=== PATIENT | female | born 1950 | race Caucasian/White ===

== ENCOUNTER → 2017-05-04 | Outpatient (CLI) | payer MEDICARE, BC ==
[2015-03-14 21:00] VITALS: BP 128/76
[~2017-05-04] MED LIST: ALLO300T PO; ASPI-482 PO; BENA40TA2 PO; CHOL20009 PO; EZET10TA18 PO; FLUO20CA8 PO; GLUC100018 PO; HYDR-2762 PO; HYDR12.58 PO; MULT-18 PO; NIAC500T PO; OMEG1CAP38 PO; RALO60TA PO; SIMV40TA PO; ZOLP10TA PO
--- NOTE | 2017-05-04 12:23 | KCIC ---
DATE: 05/04/2017 EXAM: MAMMO REBEKAH SCREENING BILATERAL HISTORY: Routine screening COMPARISON: 05/03/2016 This study was interpreted with the benefit of Computerized Aided Detection (CAD). The breast parenchyma shows scattered fibroglandular densities. Breast parenchyma level B. FINDINGS: 2-D and 3-D tomosynthesis imaging was performed in CC and MLO projections. There are multiple small smooth benign-appearing nodules in both breasts, better demonstrated on today's tomosynthesis images due to technical factors. No new or enlarging breast densities are seen. A few scattered benign type calcifications are unchanged. No suspicious microcalcifications have developed. IMPRESSION: Stable mammograms without evidence of malignancy. BI-RADS CATEGORY: 2 BENIGN FINDING(S) RECOMMENDED FOLLOW-UP: 12M 12 MONTH FOLLOW-UP PQRS compliance statement: Patient information was entered into a reminder system with a target due date for the next mammogram. Mammography is a sensitive method for finding small breast cancers, but it does not detect them all and is not a substitute for careful clinical examination. A negative mammogram does not negate a clinically suspicious finding and should not result in delay in biopsying a clinically suspicious abnormality. "Our facility is accredited by the [employer] Mammography [employer]."
== END | disposition home or self-care (01) ==
LOC: KCIC MAMMO 10:14
PROVIDERS: ATTEND Family Medicine
DX: Z12.31 Encounter for screening mammogram for malignant neoplasm of breast (principal)
CPT/HCPCS: 77063; G0202; 77067

== ENCOUNTER → 2018-05-06 | Outpatient (CLI) | payer MEDICARE, BC ==
[2015-03-14 21:00] VITALS: BP 128/76
[~2018-05-06] MED LIST changes: -BENA40TA2 PO; +BENA40TA3 PO
--- NOTE | 2018-05-07 10:11 | KCIC ---
EXAM: Bilateral digital screening mammogram with tomosynthesis. HISTORY: 67-year-old female presents for screening mammography. TECHNIQUE: Full-field digital craniocaudal and mediolateral oblique 2D and 3D tomosynthesis images of both breasts are obtained for evaluation. Computer aided detection with SwapseeD software version 9.3 was applied. COMPARISON: 05/04/2017 BREAST PARENCHYMAL DENSITY: Level B - Scattered fibroglandular densities. FINDINGS: There are small nodular densities within the anterior 6:00 position of the right breast on 5:30 position of the right breast at mid depth. These are slightly more conspicuous compared to the prior study. There are additional areas of nodularity which are stable in appearance. There is no suspicious calcifications or architectural distortion within either breast. IMPRESSION: BI-RADS Category 0: Additional imaging needed. RECOMMENDATION: Further evaluation with a right breast sonogram targeted to the anterior 6:00 and mid 5:30 positions to assess areas of nodularity is recommended. If your mammogram demonstrates that you have dense breast tissue, which could hide abnormalities, and if you have other risk factors for breast cancer that have been identified, you might benefit from supplemental screening tests that may be suggested by your ordering physician. Dense breast tissue, in and of itself, is a relatively common condition. This information is not provided to cause undue concern, but rather to raise your awareness and to promote discussion with your physician regarding the presence of other risk factors, in addition to dense breast tissue. A report of your mammography results will be sent to you and your physician. You should contact your physician if you have any questions or concerns regarding this report. Mammography is a sensitive method for finding small breast cancers, but it does not detect them all and is not a substitute for careful clinical examination. A negative mammogram does not negate a clinically suspicious finding and should not result in delay in biopsying a clinically suspicious abnormality. PQRS compliance statement - Patient information was entered into a reminder system with a target due date for the next mammogram. "Our facility is accredited by the [employer] Mammography [employer]." Electronically signed by: Rhonda Osborne MD (05/07/2018 10:08 AM) [facility]
== END | disposition home or self-care (01) ==
LOC: KCIC MAMMO 16:33
PROVIDERS: ATTEND Family Medicine
DX: Z12.31 Encounter for screening mammogram for malignant neoplasm of breast (principal)
CPT/HCPCS: 77063; 77067

== ENCOUNTER → 2018-05-24 | Outpatient (CLI) | payer MEDICARE, BC ==
[2015-03-14 21:00] VITALS: BP 128/76
[~2018-05-24] MED LIST changes: -HYDR-2762 PO; +HYDR-2765 PO
--- NOTE | 2018-05-24 13:59 | KCIC ---
Right breast ultrasound: Reason for examination: Small nodules on screening mammogram. Comparison is made to mammographic exam dated 05/06/2018. Ultrasound examination was performed inferiorly in the right breast and at the retroareolar and axillary regions. In the 4:00 position 3 cm from the nipple, there is a small 2.7 mm fibrocystic lesion. In the 5:30 position, there is a 3.1 mm focus of fibrocystic-type change. In the retroareolar 6:00 position, there is some ductal ectasia and there is a small 4.5 mm fibrocystic lesion. In the 6:00 position 1 cm from the nipple, there is a 6.5 mm cyst. In the 9:00 position 2 cm from the nipple, there is a 8.3 mm fibrocystic lesion. No suspicious lesions are seen. No abnormal appearing lymph nodes are seen in the right axilla. IMPRESSION: Benign-appearing cystic and fibrocystic lesions which are subcentimeter in size. No solid suspicious-appearing lesions are seen. Recommend 6 month sonographic follow-up. BI-RADS Category 3: Probably Benign. "Our facility is accredited by the [employer] Mammography [employer]." This patient's information has been entered into a reminder system for the patient to be notified with the results of her examination and a target date for the next mammogram. Electronically signed by: Dodie Castillo MD (05/24/2018 1:55 PM) [id number]
== END | disposition home or self-care (01) ==
LOC: KCIC US 12:54
PROVIDERS: ATTEND Family Medicine
DX: R92.8 Other abnormal and inconclusive findings on diagnostic imaging of breast (principal)
CPT/HCPCS: 76641

== ENCOUNTER → 2018-05-28 | Outpatient (CLI) | payer MEDICARE, BC ==
[2015-03-14 21:00] VITALS: BP 128/76
--- NOTE | 2018-05-28 13:43 | KCIC ---
MR of the right shoulder Indication: Right shoulder pain. Previous surgery 1989.. Comparison: May 28, 2018, limited images are available from that exam. Technique: Standard multiplanar sequences are obtained. Findings: Artifact: Moderate motion degradation. Acromioclavicular joint: Mildly degenerative. Appears similar as prior study. Rotator cuff: * Supraspinatus-infraspinatus tendon: Postsurgical artifact identified. No evidence of fluid defect or recurrent full-thickness rupture. Artifact partially obscures the rotator cuff, however. * Subscapularis tendon: Tendinosis with mild partial tearing, stable. * Muscle bulk: Mild atrophy, stable. * Subacromial subdeltoid bursa: Small effusion. Fluid: No significant glenohumeral effusion. Glenohumeral cartilage: No acute defect or advanced DJD. Labrum: No evidence of labral detachment. Biceps tendon: Thin morphology, similar prior study, no acute tear. Bones: Mild marrow edema at the greater tuberosity is unchanged. No acute fracture or aggressive bone destruction. Soft tissue: No acute findings.. Impression: No significant change since the prior study. Rotator cuff partially obscured by postsurgical artifact, no full-thickness supraspinatus-infraspinatus tendon rupture is seen. Mild partial subscapularis tendon tearing is stable. Electronically signed by: Jaya George MD (05/28/2018 1:40 PM) [facility]
== END | disposition home or self-care (01) ==
LOC: KCIC MRI 08:35
PROVIDERS: ATTEND Orthopaedic Surgery
DX: M75.101 Unspecified rotator cuff tear or rupture of right shoulder, not specified as traumatic (principal); M25.411 Effusion, right shoulder; M62.511 Muscle wasting and atrophy, not elsewhere classified, right shoulder; R60.0 Localized edema
CPT/HCPCS: 73221

== ENCOUNTER → 2018-11-20 | Outpatient (CLI) | payer MEDICARE, BC ==
[2015-03-14 21:00] VITALS: BP 128/76
--- NOTE | 2018-11-20 14:09 | KCIC ---
EXAM: Right breast sonogram. HISTORY: 68-year-old female presents for evaluation of suspected benign lesions within the right breast demonstrated on a sonogram dated 05/24/2018. TECHNIQUE: Sonographic imaging of the right breast including all 4 quadrants and the retroareolar region was performed. COMPARISON: 05/24/2018. FINDINGS: There is a 7.0 mm cyst at the 6:00 position 1 cm from the nipple. There is a benign-appearing fibrocystic lesion or 2 adjacent fibrous cystic lesions at the 6:00 retroareolar location measuring 6.7 mm. There is a 4.9 mm suspected benign fibrous cystic lesion at the 5:30 position 3 cm from the nipple. There is a round suspected benign fibrocystic lesion or complex cyst at the 4:00 position 3 cm from the nipple measuring 2.7 mm. There is a cluster of cysts or benign fibrocystic lesion measuring 5.4 mm at the 9:00 position 2 cm from the nipple. IMPRESSION: 1. Multiple benign-appearing cystic and fibrous cystic lesions within the right breast, described above. These are predominantly stable compared to the prior study, allowing for differences in imaging technique. 2. BI-RADS Category 3: Probably benign finding(s). Repeat short-term follow-up evaluation with a right breast sonogram in 5 months is recommended to confirm longer-term stability. This corresponds with a previously established bilateral mammography interval. Electronically signed by: Rhonda Osborne MD (11/20/2018 2:06 PM) [facility]
== END | disposition home or self-care (01) ==
LOC: KCIC US 13:10
PROVIDERS: ATTEND Family Medicine
DX: N64.89 Other specified disorders of breast (principal)
CPT/HCPCS: 76641

== ENCOUNTER → 2019-02-19 | Outpatient (CLI) | payer MEDICARE, BC ==
[2015-03-14 21:00] VITALS: BP 128/76
--- NOTE | 2019-02-19 17:40 | RAD ---
Exam: CT abdomen and pelvis without contrast INDICATION: Left flank pain TECHNIQUE: Sequential axial images through the abdomen and pelvis obtained without IV contrast. Sagittal and coronal reformatted images were reconstructed from the axial data and reviewed. Comparisons: April 26, 2015 FINDINGS: Heart size is normal. No pericardial effusion. Mild coronary artery calcifications noted. 3 mm nodule right middle lobe image 20. No pleural effusion. Evaluation of solid organs is limited secondary to noncontrast technique. Liver, spleen, pancreas, gallbladder and adrenals are unremarkable. Stable tubular density posterior to the right hepatic lobe may represent varix. No perinephric inflammation or hydronephrosis. 2 mm nonobstructing renal calculus at the lower pole of the left kidney. No ureteral calculi are identified. Bladder is partially distended and appears unremarkable. Uterus is absent. No abnormal adnexal mass. Diverticulosis of the sigmoid and descending colon without evidence of acute diverticulitis. Remainder of the large and small bowel are unremarkable. Appendix is normal. No free intra-abdominal air or fluid. Abdominal aorta has a normal course and caliber. No enlarged intra-abdominal lymph nodes are identified. No suspicious osseous lesion or acute fracture. IMPRESSION: 1. Nonobstructing 2 mm calculus within the lower pole of the left kidney. No ureteral calculus or evidence for obstructive uropathy. 2. Stable tubular lobulated structure posterior to the right hepatic lobe which is nonspecific in etiology, may represent a varix. If this area is of clinical concern consider nonemergent CT with contrast to better assess. 3. 3 mm nodule in the right middle lobe. In a low-risk patient no further follow-up imaging is recommended. In a High-risk patient and optional one-year follow-up CT chest can be done. Exposure: One or more of the following in the visualized dose reduction techniques were utilized for this examination: 1. Automated exposure control 2. Adjustment of the MA and/or KV according to patient size 3. Use of iterative of reconstructive technique Electronically signed by: Donovan Salvador MD (02/19/2019 5:37 PM) [facility]
== END | disposition home or self-care (01) ==
LOC: CT 15:39
PROVIDERS: ATTEND Emergency Medicine
DX: N20.0 Calculus of kidney (principal); K57.30 Diverticulosis of large intestine without perforation or abscess without bleeding; R91.1 Solitary pulmonary nodule; I25.10 Atherosclerotic heart disease of native coronary artery without angina pectoris
CPT/HCPCS: 74176

== ENCOUNTER → 2019-05-07 | Outpatient (CLI) | payer MEDICARE, BC ==
[2015-03-14 21:00] VITALS: BP 128/76
[~2019-05-07] MED LIST changes: +ALBU2.5V8 IH; +ALPR0.5T6 PO; +CRESTOR40 MG PO; -EZET10TA18 PO; +EZET10TA20 PO; +FURO-68 PO; +HYDR-2769 PO; +ONDA4TAB12 PO; +TIOT4MIS3 IH
--- NOTE | 2019-05-07 11:33 | KCIC ---
CT LUMBAR SPINE WO CONTRAST Indication: Low back pain, previous laminectomy Technique: Noncontrast CT imaging was performed of the lumbar spine, multiplanar reconstruction images submitted. One or more of the following individualized dose reduction techniques were utilized for this examination: 1. Automated exposure control 2. Adjustment of the mA and/or kV according to patient size 3. Use of iterative reconstruction technique. Comparison: 08/27/2008 Findings: There is increased grade 1 anterior spondylolisthesis at L3-4 about 4 mm. There is advanced L4-5 degenerative disc disease at which there is vacuum disc disease, development of L3-4 vacuum disc disease at which there is mild narrowing. There is sclerotic endplate change at L4-5 greater in interval. Lumbar vertebral body stature is maintained. There is relative bone demineralization. There is very mild lumbar levoscoliosis. There is very mild left lateral subluxation L3 relative to L4. There is scattered plaque of the abdominal aorta. T12-L1: There is minimal disc osteophyte complex. Osseous spinal canal and neural foramina are adequate. There is mild facet degenerative change. L1-2: There is negligible disc osteophyte complex. Neural foramina and spinal canal are adequate. There is mild facet degenerative change. L2-3: There is moderate facet degenerative change. Neural foramina are adequate, spinal canal not convincingly narrowed. L3-4: There has been left laminectomy. There is partial uncovering of the posterior aspect of the disc greater than previously, also now broad superimposed bulge. Spinal canal is not significantly narrowed. Bulge contributes to likely fairly severe left and moderate to severe right neural foramina compromise with contact of the undersurfaces exiting L3 nerve roots. There is facet hypertrophic change. L4-L5: There has been left laminectomy. There is facet hypertrophic change. There is disc osteophyte complex with likely mild indentation upon the ventral thecal sac, possible mild narrowing of the far left lateral recess. There is fairly severe narrowing of the left neural foramen by disc osteophyte complex and facet with contact exiting left L5 nerve root, also moderate to severe narrowing of the right neural foramen with contact undersurface exiting right L4 nerve root by disc osteophyte complex. L5-S1: Spinal canal and neural foramina are adequate. There is facet degenerative change greater on the right. IMPRESSION: 1. No convincing significant lumbar spinal stenosis is identified on this nonmyelographic exam, likely degree of mild left lateral recess stenosis at L4-5. There have been left laminectomies at L3-4 and L4-5. Grade 1 anterior spondylolisthesis at L3-4 is some greater than 2019 exam. There is degenerative disc disease greatest at L4-5 and to lesser degree at L3-4. 2. There is significant neural foramina compromise bilaterally at L3-4 and L4-5 with contact of the exiting L3 and L4 nerve roots respectively. Electronically signed by: Govind Main MD (05/07/2019 11:30 AM) [facility]
== END | disposition home or self-care (01) ==
LOC: KCIC MAMMO 09:53
PROVIDERS: ATTEND Family Medicine
DX: M43.16 Spondylolisthesis, lumbar region (principal); M51.36 Other intervertebral disc degeneration, lumbar region; M47.817 Spondylosis without myelopathy or radiculopathy, lumbosacral region; M81.8 Other osteoporosis without current pathological fracture; M25.78 Osteophyte, vertebrae
CPT/HCPCS: 72131

== ENCOUNTER → 2019-05-09 | Outpatient (CLI) | payer MEDICARE, BC ==
[2015-03-14 21:00] VITALS: BP 128/76
[~2019-05-09] MED LIST changes: +IOHEXOL 180 MG/ML 10 ML VIAL. ONE; +methylPREDNISolone ACETATE 40 MG/ML VIAL. ONE; +methylPREDNISolone ACETATE 80 MG/ML VIAL. ONE
--- NOTE | 2019-05-09 23:59 | PAIN ---
DATE OF SERVICE: 05/09/2019 INITIAL CONSULTATION FOR PAIN CLINIC CHIEF COMPLAINT: Low back pain. HISTORY OF PRESENT ILLNESS: This is a 68-year-old female who presents with history of pain in the low back and some in bilateral lower extremities, mostly in the posterior gluteus, lateral, anterior thighs, but only rarely, mostly in the low back. The patient reports worse with walking, standing, changing positions and worse about a month, not a result of any specific injury or action she is aware of. It is a constant pain shooting, changes during the day, worse with activity, walking, better with sitting or lying down, but awakens her from sleep at least once or twice a night. The patient reports it does not affect her bowel or bladder control, does affect her ability to walk significantly. She is not using any assistive devices, however. The patient has had some epidural injections in the past, but prior to previous surgery and this was years ago. The patient reports she has had no recent physical therapies, doing some stretching on her own, but no other chiropractic treatments or other modalities. The patient rates her disability rating from 0-10, 10 being the worst, is a 5 with family home responsibilities, social activity, sexual behavior and life support activities, 7 with recreation, occupation and self-care activities. The patient did have a CT scan of the lumbar spine showing laminectomies at L3-L4 and L4-L5, grade 1 anterior spondylolisthesis at L3-L4 somewhat greater than 2019 exam, degenerative disk disease greatest at L4-L5 and to a lesser degree at L3-L4. Significant neural foraminal compromise bilaterally at L3-L4 and L4-L5 with contact at exiting L3 and L4 nerve roots respectively. PAST MEDICAL HISTORY: Significant for hypertension, COPD, cigarette smoking 2 packs a day, quit 3 years ago, arthritis, gout. PREVIOUS SURGERY: Includes right eye cataract extraction, shoulder scope on the right as well, hysterectomy, breast biopsy, knee surgeries multiple and lumbar laminectomy in 2007 and cervical laminectomy in 2006. CURRENT MEDICATIONS: Include hydrocodone, alprazolam, Crestor, Zetia, fluoxetine, Ambien, ondansetron, Lasix, albuterol inhaler, Evista, hydrochlorothiazide, benazepril, aspirin, allopurinol, omega-3, multivitamins, vitamin D3, and tiotropium inhaler. ALLERGIES: THE PATIENT IS ALLERGIC TO CERTAIN TAPES. NO MEDICAL ALLERGIES. FAMILY HISTORY: Significant for heart disease, breast cancer. SOCIAL HISTORY: The patient does not drink alcohol. Quit smoking many years ago. Uses e-cigarettes, however, daily, is and lives with her spouse. Denies any illegal, illicit or recreational drugs. Lives locally in [place], [place]. Reports she is currently retired. REVIEW OF SYSTEMS: The patient's review of systems is positive for those items mentioned in history of present illness. All systems reviewed and otherwise negative. It is complete, full and well documented on the patient's chart. PHYSICAL EXAMINATION: VITAL SIGNS: The patient's blood pressure is 141/75, pulse 98, respirations 18, temperature 98.0 degrees Fahrenheit, height is 5 feet 7 inches, weight is 260 pounds. GENERAL: The patient is awake, alert, oriented, appropriate, very pleasant demeanor. HEENT: Shows normocephalic, atraumatic. Extraocular movements are intact and symmetrical. Oral cavity: Mucous membranes moist and pink. Dentition is intact. NECK: Shows anterior throat supple without palpable lymphadenopathy noted. Swallow reflex symmetrical. CHEST: Shows normal on inspection. Breath sounds clear bilaterally. HEART: Shows S1, S2 clear. No murmurs auscultated. ABDOMEN: Obese, soft, nontender, nondistended. No palpable organomegaly is noted. No rebound or guarding demonstrated. BACK: Shows spine grossly in the midline. Normal-appearing thoracic kyphosis and flattening of lumbar lordotic curvature with well-healed surgical scar. Lumbar paraspinous muscle shows symmetrical on inspection, on palpation shows some moderate tenderness diffusely throughout the upper, middle and lower distribution of paraspinous muscles, but without radiation. The patient has good rotational motion of lumbar spine, both laterally greater than 10 degrees right and left with extension shows some [id number] tenderness with extension greater than 10 degrees, but not with forward flexion, which decreases the pain at 45 degrees. EXTREMITIES: Lower extremities show deep tendon reflexes 1+ in the patellar and tendo calcaneus tendons. Motor exam is strong with 5/5 dorsiflexion, extension, quadriceps and hamstring flexion. Peripheral pulses are 1+ posterior tibia. No peripheral edema is noted. Lower extremities are warm and dry to touch, equal in color and appearance. Straight leg raise noted to be negative bilaterally as is Gaenslen's and Dajuan's maneuvers bilaterally. The patient is able to stand, stand on her toes without difficulty or loss of balance, walks with a normal appearing gait, does not appear to favor the right or left lower extremity significantly, not using any assistive devices. SKIN: The patient's skin shows warm and dry, good turgor. No edema. No sores, rashes or bruising throughout. IMPRESSION: 1. This is a 68-year-old female with approximately 1 month history of increasing low back pain, bilateral lower extremity pain. 2. CT scan of lumbar spine as noted. 3. Hypertension. 4. Arthritis. 5. Obesity. 6. Chronic obstructive pulmonary disease. PLAN: Options were discussed with the patient including conservative medical management, physical therapy, interventional techniques. She would like to pursue interventional techniques. We discussed a lumbar epidural steroid injection using description as well as anatomical models to describe the procedure. Risks were then discussed including, but not limited to bleeding, infection, possibility of epidural hematoma, subsequent neurologic compromise, dural puncture, headaches, spinal cord and/or nerve damage, side effects of steroid medication and poor results regarding pain control. The patient understands and wished to proceed. The patient will return to the clinic in approximately 2 weeks for followup. She was counseled as to return appointment, activity level and side effects to be aware of. DIAGNOSES: Lumbar radiculopathy with lumbar degenerative disk disease, post-laminectomy syndrome. PROCEDURE: Lumbar epidural steroid injection, translaminar approach at L4-L5 level using C-arm fluoroscopic guidance under sterile prep and drape using local anesthetic. MEDICATION INJECTED: A total of 120 mg Depo-Medrol plus 10 mL of preservative-free normal saline and 2 mL of contrast. CONDITION AT DISCHARGE: Stable. The patient tolerated procedure well, had no complications. WILLA HOLGUIN MD DR: DEVENDRA/jason JOB#: [id number] / [id number] LETTY Cedillo MD
== END | disposition home or self-care (01) ==
LOC: PNCL 10:13
PROVIDERS: ATTEND Anesthesiology
DX: M51.16 Intervertebral disc disorders with radiculopathy, lumbar region (principal); I10 Essential (primary) hypertension; J44.9 Chronic obstructive pulmonary disease, unspecified; M19.90 Unspecified osteoarthritis, unspecified site; M10.9 Gout, unspecified; E66.9 Obesity, unspecified; Z98.890 Other specified postprocedural states; Z90.710 Acquired absence of both cervix and uterus; Z87.891 Personal history of nicotine dependence; Z79.899 Other long term (current) drug therapy; Z79.82 Long term (current) use of aspirin; Z91.048 Other nonmedicinal substance allergy status; Z80.3 Family history of malignant neoplasm of breast; Z82.49 Family history of ischemic heart disease and other diseases of the circulatory system; Z68.41 Body mass index [BMI] 40.0-44.9, adult
CPT/HCPCS: 62323; J1030; J1040; Q9965

== ENCOUNTER → 2019-05-22 | Outpatient (CLI) | payer MEDICARE, BC ==
[2015-03-14 21:00] VITALS: BP 128/76
[~2019-05-22] MED LIST changes: -IOHEXOL 180 MG/ML 10 ML VIAL. ONE; -methylPREDNISolone ACETATE 40 MG/ML VIAL. ONE; -methylPREDNISolone ACETATE 80 MG/ML VIAL. ONE
--- NOTE | 2019-05-23 13:10 | RAD ---
DATE: 05/22/2019 EXAM: DIGITAL DIAGNOSTIC BILATERAL, BREAST RIGHT HISTORY: Abnormal mammogram, abnormal breast ultrasound, annual screening. COMPARISON: 05/03/2016, 05/04/2017, 05/06/2018 mammographic exams, 05/24/2018 and 11/20/2018 right breast ultrasound exams This study was interpreted with the benefit of Computerized Aided Detection (CAD). Breast Density: SCATTERED The breast parenchyma shows scattered fibroglandular densities. Breast parenchyma level B. FINDINGS: Multiple small masses bilaterally are stable. No new calcification or mass. No distortion in the interval. Limited right breast ultrasound exam was performed. At the 9:00 region 2 cm from nipple, there is a 0.5 cm x 0.5 cm x 0.2 cm mildly hypoechoic well circumscribed mass which has remained stable. Hypoechoic region with shadowing is questioned at the 9:00 region 4 cm from the nipple measuring up to 0.7 cm x 0.2 cm. Shadowing is suggested deep to this finding. At the 9:00 region and retroareolar aspect, there is a 0.5 cm x 0.4 cm x 0.4 cm cyst. This appears to correspond with findings on mammography seen on multiple prior exams. Slightly dilated duct at 6:00 region 1 cm from nipple is present. Previously described lesions involving the 4:00 and 5:30 region are not currently seen. Previously described 6:00 location 1 cm from the nipple also is not currently seen. IMPRESSION: No definite suspicious finding. BI-RADS CATEGORY: 3 PROBABLY BENIGN FINDING(S)-SHORT INTERVAL FOLLOW-UP SUGGESTED RECOMMENDED FOLLOW-UP: 6M 6 MONTH FOLLOW-UP. Six-month follow-up mammographic and ultrasound examination of the right breast is recommended to assess stability of a possible hypoechoic region noted at the 9:00 region 4 cm from the nipple. No suspicious corresponding to mammographic findings evident. PQRS compliance statement: Patient information was entered into a reminder system with a target due date for the next mammogram. Mammography is a sensitive method for finding small breast cancers, but it does not detect them all and is not a substitute for careful clinical examination. A negative mammogram does not negate a clinically suspicious finding and should not result in delay in biopsying a clinically suspicious abnormality. "Our facility is accredited by the [employer] Mammography Program."
== END | disposition home or self-care (01) ==
LOC: MAMMO 12:58
PROVIDERS: ATTEND Family Medicine
DX: N60.01 Solitary cyst of right breast (principal); N63.10 Unspecified lump in the right breast, unspecified quadrant; N63.20 Unspecified lump in the left breast, unspecified quadrant
CPT/HCPCS: 76641; 77066

== ENCOUNTER → 2019-05-27 | Outpatient (CLI) | payer MEDICARE, BC ==
[2015-03-14 21:00] VITALS: BP 128/76
[~2019-05-27] MED LIST changes: +BUPIVACAINE MPF 0.25% 10 ML VIAL. ONE; +IOHEXOL 180 MG/ML 10 ML VIAL. ONE; +methylPREDNISolone ACETATE 40 MG/ML VIAL. ONE; +methylPREDNISolone ACETATE 80 MG/ML VIAL. ONE
--- NOTE | 2019-05-27 15:40 | PAIN ---
DATE OF SERVICE: 05/27/2019 PROGRESS NOTE FOR PAIN CLINIC DIAGNOSES: Lumbar degenerative disk disease, lumbar and lumbosacral spondylosis with post-lumbar laminectomy syndrome. HISTORY OF PRESENT ILLNESS: The patient is a 68-year-old female who returns for followup status post post-lumbar epidural steroid injection x 1. The patient reports about 30% improvement after about 2 days, the pain still decreased, but returning in the low back itself. The patient reports it is mostly in the low back, much more significant than it was previously, rated 8 on a scale of 10 at its worst in the past week, 5 on average, and 2 at its least and is a 5 today. The patient reports it is sharp, shooting across the low back, but not into the lower extremities at this time. The patient reports lower extremity is doing much better. The back pain itself, however, is significant. It is worse with standing, walking, changing positions, especially standing up from a seated position, much better with sitting or lying down, does not awaken her from sleep at night. She sleeps about 6 hours at a time without difficulty from the pain in her back. The patient reports that the extension of the lumbar spine and axial loading low back most significant pain such as reaching for an item above her head, leaning forward, tends to decrease the pain with forward flexion. She has noticed she is starting to walk more flexed as well. The patient reports no new motor or sensory deficits, no new bowel or bladder incontinence or other complaints. PHYSICAL EXAMINATION: VITAL SIGNS: The patient's blood pressure 132/68, pulse 76, respirations 18, temperature 98.2 degrees Fahrenheit, height is 5 feet 7 inches, weight is 272 pounds. GENERAL: The patient is awake, alert, oriented, appropriate, very pleasant demeanor. HEENT: Shows normocephalic, atraumatic. Extraocular movements are intact and symmetrical. Oral cavity: Mucous membranes moist and pink. Dentition is intact. NECK: Shows anterior throat supple without palpable lymphadenopathy noted. Swallow reflex symmetrical. CHEST: Shows normal on inspection. Breath sounds are clear bilaterally. HEART: Shows S1, S2 clear. ADOMEN: Obese, soft, nontender, nondistended. BACK: Slight flattening of lumbar lordotic curvature with well-healed small surgical scar in the midline. Lumbar paraspinous muscle shows symmetrical on inspection, on palpation shows some moderate tenderness diffusely bilaterally in the lower lumbar distribution, but only diffusely without radiation. No tenderness over the sacrum or sacroiliac regions. The patient shows good rotation of motion of the lumbar spine with some moderate tenderness, more to the right than the left greater than 10 degrees with a significant increase in pain with extension greater than 10 degrees, decreased with forward flexion at 45 degrees. EXTREMITIES: The patient's lower extremities show deep tendon reflexes 1+ in the patellar and tendo calcaneus tendons. Motor strength is approximately 4 on a scale of 5, but equal and symmetrical with dorsiflexion, extension, quadriceps and hamstring flexion, right and left. Peripheral pulses are 1+ posterior tibia bilaterally. Options were discussed with the patient. The patient's old chart was reviewed as her current medication regimen updated. Current review of systems updated today as well. We will proceed with bilateral facet joint injections, L4-L5 and L5-S1 level using C-arm fluoroscopic guidance. Risks were again discussed including, but not limited to bleeding, infection, possibility of epidural hematoma, subsequent neurological compromise, dural puncture, headaches, spinal cord and/or nerve damage, side effects of steroid medication, spread of local anesthetic and numbness as well as poor results regarding pain control. The patient understands and wished to proceed. The patient will return to the clinic in approximately 2 weeks for followup. She was counseled as to return appointment, activity level and side effects to be aware of. DIAGNOSES: Lumbar and lumbosacral spondylosis with lumbar degenerative disk disease, post-lumbar laminectomy syndrome. PROCEDURE: Bilateral L4-L5 and L5-S1 facet joint injections using C-arm fluoroscopic guidance under sterile prep and drape using local anesthetic. MEDICATION INJECTED: A total of 120 mg Depo-Medrol plus total of 4 mL of 0.25% bupivacaine, total of 2 mL of contrast. CONDITION AT DISCHARGE: Stable. The patient tolerated the procedure well, had no complications. WILLA HOLGUIN MD DR: DEVENDRA/jason JOB#: [id number] / [id number]
== END ==
LOC: PNCL 10:59
PROVIDERS: ATTEND Anesthesiology
DX: M47.817 Spondylosis without myelopathy or radiculopathy, lumbosacral region (principal); M96.1 Postlaminectomy syndrome, not elsewhere classified; M51.36 Other intervertebral disc degeneration, lumbar region
CPT/HCPCS: 64493; 64494; J1030; J1040; J3490; Q9965

== ENCOUNTER → 2019-06-12 | Outpatient (CLI) | payer MEDICARE, BC ==
[2015-03-14 21:00] VITALS: BP 128/76
[~2019-06-12] MED LIST changes: +FLUO20CA19 PO; -FLUO20CA8 PO
--- NOTE | 2019-06-12 12:49 | PAIN ---
DATE OF SERVICE: 06/12/2019 PROGRESS NOTE FOR PAIN CLINIC DIAGNOSES: Lumbar radiculopathy with lumbar degenerative disk disease, lumbar spondylosis and post-lumbar laminectomy syndrome. HISTORY OF PRESENT ILLNESS: The patient is a 68-year-old female who returns for followup status post bilateral L4-L5 and L5-S1 facet joint injections. The patient reports very good results about 50% improvement overall in the low back pain, which has been much more manageable, especially for the first 2 weeks or so. The patient reports the pain is returning now over this past week in the low back itself without any radiation to lower extremities currently, but in the low back region at 8 on a scale of 10 at its worst over the past week, 5 on average, 2 at its least and is a 2 today. The patient reports it is stabbing, aching type, on and off in intensity, worse with walking, standing, changing positions, better with lying down or sitting, but prolonged sitting can exacerbate the pain as well for more than about an hour. The patient reports no new motor or sensory deficits, no new bowel or bladder incontinence. PHYSICAL EXAMINATION: VITAL SIGNS: The patient's blood pressure 124/62, pulse 61, respirations 18, temperature 98.0 degrees Fahrenheit, height is 5 feet 7 inches, weight is 275 pounds. GENERAL: The patient is awake, alert, oriented, appropriate, very pleasant demeanor. The patient is accompanied by her . HEENT: Shows normocephalic, atraumatic. Extraocular movements are intact and symmetrical. Oral cavity shows mucous membranes moist and pink. Dentition is intact. NECK: Shows anterior throat supple without palpable lymphadenopathy noted. Swallow reflex symmetrical. CHEST: Shows normal on inspection. Breath sounds clear bilaterally. HEART: Shows S1, S2 clear. ABDOMEN: Soft, nontender, nondistended. BACK: Shows spine grossly in the midline. Normal appearing thoracic kyphosis and minor flattening of lumbar lordotic curvature. Lumbar paraspinous muscle shows symmetrical on inspection with a well-healed surgical scar noted. With palpation shows some moderate tenderness diffusely bilaterally in the middle and lower distribution of paraspinous muscles, but only diffusely without significant radiation. The patient has good rotational motion with some moderate tenderness right and left lateral greater than 10 degrees and some significant tenderness with extension of the lumbar spine and axial loading greater than 10 degrees, forward flexion is performed without significant difficulty to 45 degrees. EXTREMITIES: The patient's lower extremities show deep tendon reflexes at 1+ in the patellar and tendo calcaneus tendons are equal. Motor exam is approximately 4 on a scale of 5, but equal and symmetrical dorsiflexion, extension, quadriceps and hamstring flexion. Peripheral pulses are 1+ posterior tibia. No peripheral edema is noted bilaterally. Options were discussed with the patient. The patient's old chart was reviewed as her current medication regimen updated. Current review of systems updated today as well. We will proceed with bilateral repeat L4-L5 and L5-S1 facet joint injections today with fluoroscopic guidance. Risks were again discussed including, but not limited to bleeding, infection, possibility of epidural hematoma, subsequent neurological compromise, dural puncture, headaches, spinal cord and/or nerve damage, side effects of steroid medication and poor results regarding pain control. The patient understands and wished to proceed. The patient will return to the clinic in approximately 2 weeks for followup. She was counseled as to return appointment, activity level and side effects to be aware of. DIAGNOSIS: Lumbar and lumbosacral spondylosis. PROCEDURE: Bilateral L4-L5 and L5-S1 facet joint injections using C-arm fluoroscopic guidance under sterile prep and drape using local anesthetic. MEDICATION INJECTED: A total of 120 mg Depo-Medrol plus 4 mL of 0.25% bupivacaine and 2 mL of contrast. CONDITION AT DISCHARGE: Stable. The patient tolerated procedure well, had no complications. WILLA HOLGUIN MD DR: DEVENDRA/jason JOB#: [id number] / [id number]
== END ==
LOC: PNCL 10:35
PROVIDERS: ATTEND Anesthesiology
DX: M51.16 Intervertebral disc disorders with radiculopathy, lumbar region (principal); M47.817 Spondylosis without myelopathy or radiculopathy, lumbosacral region; M96.1 Postlaminectomy syndrome, not elsewhere classified
CPT/HCPCS: 64493; 64494; J1030; J1040; J3490; Q9965

== ENCOUNTER → 2019-06-26 | Outpatient (CLI) | payer MEDICARE, BC ==
[2015-03-14 21:00] VITALS: BP 128/76
[~2019-06-26] MED LIST changes: -BUPIVACAINE MPF 0.25% 10 ML VIAL. ONE
--- NOTE | 2019-06-26 12:09 | PAIN ---
DATE OF SERVICE: 06/26/2019 PROGRESS NOTE FOR PAIN CLINIC DIAGNOSES: Lumbar radiculopathy with lumbar degenerative disk disease, lumbar spondylosis and post-lumbar laminectomy syndrome. HISTORY OF PRESENT ILLNESS: The patient is a 68-year-old female who returns for followup status post lumbar epidural steroid injection x 1 and facet joint injections, L4-L5 and L5-S1 bilaterally x 2. The patient reports about 50% improvement with each of the facet joint injections, but only lasting for about a week or so. The patient reports the pain returns fairly quickly after that and currently is radiating into the right posterior gluteus and lateral anterior thigh on the right side as well as the low back and sometimes in the right side of the upper back as well. The patient reports the pain is a 9 on a scale of 10 at its worst over the past week, 6 on average, 4 at its least and is a 6 today. The patient reports it is sharp, shooting, stabbing, radiating, on and off in intensity, worse with walking, standing, changing positions, better with sitting or lying down, generally does not awaken her from sleep, but has over the past few days about every 6 hours. The patient reports no new motor or sensory deficits, no new bowel or bladder incontinence or other complaints. PHYSICAL EXAMINATION: VITAL SIGNS: The patient's blood pressure 137/76, pulse 78, respirations 18, temperature 98.0 degrees Fahrenheit, height is 5 feet 7 inches, weight is 278 pounds. GENERAL: The patient is awake, alert, oriented, appropriate, very pleasant demeanor. HEENT: Shows normocephalic, atraumatic. Extraocular movements are intact and symmetrical. Oral cavity: Mucous membranes moist and pink. Dentition is intact. NECK: Shows anterior throat supple without palpable lymphadenopathy noted. Swallow reflex symmetrical. CHEST: Shows normal on inspection. Breath sounds are clear bilaterally. HEART: Shows S1, S2 clear. No murmurs auscultated. ABDOMEN: Soft, nontender, nondistended. No palpable organomegaly is noted. No rebound or guarding demonstrated. BACK: Shows spine grossly in the midline. Normal-appearing thoracic kyphosis and some flattening of lumbar lordotic curvature. Well-healed surgical scar is noted in the lumbar distribution. Lumbar paraspinous muscle shows symmetrical on inspection, on palpation shows some moderate tenderness diffusely bilaterally going diffusely without significant radiation. The patient does show some moderate tenderness with rotation of the lumbar spine, both laterally as well as extension and flexion, but only moderately bilaterally with extension shows some increased tenderness in the low back itself, somewhat more on the right than the left. EXTREMITIES: Lower extremities show deep tendon reflexes 1+ in the patellar and tendo calcaneus tendons. Motor exam is approximately 4 on a scale of 5, but equal and symmetrical dorsiflexion, extension, quadriceps and hamstring flexion. Peripheral pulses are 1+ posterior tibia. No peripheral edema is noted. Options were discussed with the patient. The patient's old chart was reviewed as her current medication regimen updated. Current review of systems updated today as well. We will proceed with a lumbar epidural steroid injection, second in the series today as she feels this may have done better than the facet joints initially. Risks were again discussed including, but not limited to bleeding, infection, possibility of epidural hematoma, subsequent neurological compromise, dural puncture, headaches, spinal cord and/or nerve damage, side effects of steroid medication and poor results regarding pain control. The patient understands and wished to proceed. The patient will return to clinic in approximately 2 weeks for followup. She was counseled on return appointment, activity level and side effects to be aware of. DIAGNOSES: Lumbar radiculopathy with lumbar degenerative disk disease with lumbar spondylosis and post-lumbar laminectomy syndrome. PROCEDURE: Lumbar epidural steroid injection, translaminar approach L4-L5 level using C-arm fluoroscopic guidance under sterile prep and drape using local anesthetic. MEDICATION INJECTED: A total of 120 mg Depo-Medrol plus 10 mL of preservative-free normal saline and 2 mL of contrast. CONDITION AT DISCHARGE: Stable. The patient tolerated procedure well, had no complications. WILLA HOLGUIN MD DR: DEVENDRA/jason JOB#: [id number] / [id number]
== END ==
LOC: PNCL 10:03
PROVIDERS: ATTEND Anesthesiology
DX: M51.16 Intervertebral disc disorders with radiculopathy, lumbar region (principal); M96.1 Postlaminectomy syndrome, not elsewhere classified; M47.816 Spondylosis without myelopathy or radiculopathy, lumbar region
CPT/HCPCS: 62323; J1030; J1040; Q9965

== ENCOUNTER → 2019-08-20 | Outpatient (CLI) | payer MEDICARE, BC ==
[2015-03-14 21:00] VITALS: BP 128/76
[~2019-08-20] MED LIST changes: +BUPIVACAINE MPF 0.25% 10 ML VIAL. ONE; -FLUO20CA19 PO; +FLUO20CA20 PO; -IOHEXOL 180 MG/ML 10 ML VIAL. ONE; +LIDOCAINE 1% PF 2 ML VIAL. ONE; +LIDOCAINE 2% PF 5 ML VIAL. ONE
--- NOTE | 2019-08-20 23:26 | PAIN ---
DATE OF SERVICE: 08/20/2019 PROGRESS NOTE FOR PAIN CLINIC DIAGNOSES: Lumbar and lumbosacral spondylosis with post-lumbar laminectomy syndrome and lumbar degenerative disk disease. HISTORY OF PRESENT ILLNESS: The patient is a 68-year-old female who returns for followup status post lumbar facet joint injections as well as lumbar epidural steroid injection. The patient reports that the epidural steroid injection was not significantly helpful, only minimal decrease in pain, but did well with the initial facet joint injections in 05/2019. The patient reports significant pain in the low back bilaterally, but not radiating to the lower extremity significantly at this time. The patient did have this on her previous exam, but not over the past several weeks. The patient reports it is a 10 on a scale of 10 at its worst, 6 on average over the past week, 4 at its least and is a 6 today. The patient reports it is sharp, stabbing across the low back, worse with standing, walking, changing positions, especially with extension of the lumbar spine and getting up from a seated position most noticeably. The patient reports it does not awaken her from sleep most nights, it is better with lying down or sitting hunched forward with spine flexed. The patient reports no loss of motor function, no bowel or bladder incontinence. Initially after the initial injections in the lumbar facets, she was increasing her activity with walking, standing, sitting, activities for greater durations, doing household activities with greater comfort as well as traveling with greater ease. PHYSICAL EXAMINATION: VITAL SIGNS: The patient's blood pressure 136/78, pulse 87, respirations 18, temperature 98.5 degrees Fahrenheit, height is 5 feet 7 inches, weight is 283 pounds. GENERAL: The patient is awake, alert, oriented, appropriate, very pleasant demeanor. HEENT: Head shows normocephalic, atraumatic. Extraocular movements are intact and symmetrical. Oral cavity shows mucous membranes moist and pink. Dentition is intact. NECK: Shows anterior throat supple without palpable lymphadenopathy noted. Swallow reflex symmetrical. CHEST: Shows normal on inspection. Breath sounds are clear bilaterally. HEART: Shows S1, S2 clear. No murmurs auscultated. ABDOMEN: Soft, nontender, nondistended. No palpable organomegaly is noted. No rebound or guarding demonstrated. BACK: Shows spine grossly in the midline. Patient's well-healed surgical scars noted in the lumbar distribution with some minor flattening of lumbar lordotic curvature. Lumbar paraspinous muscle shows symmetrical on inspection, on palpation shows some moderate tenderness diffusely in the low lumbar distribution only, right essentially equal to left. The patient does show good rotational motion with some minor pain with right and left lateral rotation greater than 10 degrees with significant pain with extension greater than 10 degrees and axial loading of the lumbar spine, better with forward flexion at 45 degrees with pain decreased and almost relieved. EXTREMITIES: The patient's lower extremities show deep tendon reflexes 1+ in the patellar and tendo calcaneus tendons are equal. Motor exam is approximately 4 on a scale of 5, but symmetrical with dorsiflexion, extension, quadriceps and hamstring flexion. Peripheral pulses are 1+. No peripheral edema is noted bilaterally. Options were discussed with the patient. The patient's old chart was reviewed as her current medication regimen updated. Current review of systems updated today as well. We will proceed with bilateral L4-L5 and L5-S1 medial branch radiofrequency ablation with fluoroscopic guidance. Risks were again discussed including, but not limited to bleeding, infection, possibility of epidural hematoma, subsequent neurological compromise, dural punctures, headaches, spinal cord and/or nerve damage, side effects of steroid medication, exposure to fluoroscopy, potential thermal damage of the motor nerves and permanent ischemic damage as well as permanent thermal damage and motor loss as well as poor results regarding pain control. The patient understands and wished to proceed. The patient will return to clinic in approximately 2 weeks for followup. She was counseled on return appointment, activity level and side effects to be aware of. DIAGNOSES: Lumbar degenerative disk disease, lumbar and lumbosacral spondylosis and post-laminectomy syndrome. PROCEDURE: Bilateral L4-L5 and L5-S1 medial branch radiofrequency ablation under sterile prep and drape using local anesthetic. MEDICATION INJECTED: A total of 6 mL of 2% lidocaine 1 mL at each level after motor testing, but prior to radiofrequency ablation total of 6 mL of 0.25% bupivacaine with 120 mg Depo-Medrol after radiofrequency ablation that is 1 mL at each level as well after negative aspiration. Please see radiofrequency flow sheet for levels, times, impedances, temperatures and duration as noted. CONDITION AT DISCHARGE: Stable. The patient tolerated procedure well and was discharged on her own power. No immediate complications. WILLA HOLGUIN MD DR: DEVENDRA/jason JOB#: [id number] / [id number]
== END ==
LOC: PNCL 11:00
PROVIDERS: ATTEND Anesthesiology
DX: M47.817 Spondylosis without myelopathy or radiculopathy, lumbosacral region (principal); M96.1 Postlaminectomy syndrome, not elsewhere classified; M51.36 Other intervertebral disc degeneration, lumbar region
CPT/HCPCS: 64635; 64636; J1030; J1040; J2001; J3490

== ENCOUNTER → 2019-09-17 | Outpatient (CLI) | payer MEDICARE, BC ==
[2015-03-14 21:00] VITALS: BP 128/76
[~2019-09-17] MED LIST changes: -BUPIVACAINE MPF 0.25% 10 ML VIAL. ONE; -LIDOCAINE 1% PF 2 ML VIAL. ONE; -LIDOCAINE 2% PF 5 ML VIAL. ONE; -methylPREDNISolone ACETATE 40 MG/ML VIAL. ONE; -methylPREDNISolone ACETATE 80 MG/ML VIAL. ONE
--- NOTE | 2019-09-17 14:17 | PAIN ---
DATE OF SERVICE: 09/17/2019 PROGRESS NOTE FOR PAIN CLINIC DIAGNOSES: Lumbar radiculopathy with lumbar degenerative disk disease, lumbar spondylosis and post-lumbar laminectomy syndrome. HISTORY OF PRESENT ILLNESS: The patient is a 68-year-old female who returns for followup status post radiofrequency ablation on bilateral L4-L5 and L5-S1 medial branches. The patient reports only minimal decrease in pain after the ablation. The patient has also had lumbar epidural steroid injections with minimal decrease and facet joint injections which actually were helpful initially, but the pain has returned significantly even after radiofrequency ablation has been about 4 weeks now. The patient reports her pain is a 9 on a scale of 10 at its worst over the past week, 6 on average, 4 at its least and is a 4 today, worse with walking, standing, changing positions, much better with sitting or lying down, does not awaken her from sleep at night. The patient reports she had a recent cough and has been on antibiotics, but this is causing the back pain to be worse as well. The patient reports no new motor or sensory deficits, no new bowel or bladder incontinence, still significant pain described as sharp and shooting, stabbing in the low back as it was previously. PHYSICAL EXAMINATION: VITAL SIGNS: The patient's blood pressure 139/77, pulse 84, respirations 18, temperature 97.7 degrees Fahrenheit, height is 5 feet 7 inches, and weight is 287 pounds. GENERAL: The patient is awake, alert, oriented, appropriate, very pleasant demeanor. The patient is accompanied by her spouse. HEENT: Shows normocephalic, atraumatic. Extraocular movements are intact and symmetrical. Oral cavity: Mucous membranes moist and pink. Dentition is intact. NECK: Shows anterior throat supple without palpable lymphadenopathy noted. Swallow reflex symmetrical. CHEST: Shows normal on inspection. Breath sounds are clear bilaterally. HEART: Shows S1, S2 clear. No murmurs auscultated. ABDOMEN: Soft, nontender, nondistended. No palpable organomegaly is noted. No rebound or guarding demonstrated. BACK: Shows spine grossly in the midline. Normal appearing thoracic kyphosis, minor flattening of lumbar lordotic curvature with well-healed surgical scar noted. Lumbar paraspinous muscle shows symmetrical on inspection, on palpation shows some moderate tenderness diffusely in the low lumbar distribution only but without specific radiation. The patient has good rotational motion of lumbar spine with some moderate tenderness bilaterally, but only moderately at 10 degrees right and left as well as moderate pain with extension, but no pain with forward flexion. EXTREMITIES: Lower extremities show deep tendon reflexes 1+ in the patellar and tendo calcaneus tendons. Motor exam is approximately 4 on a scale of 5, but equal bilaterally. Peripheral pulses are 1+. No peripheral edema is noted. PLAN: Options were discussed with the patient. The patient's old chart was reviewed as her current medication regimen updated. Current review of systems updated today as well. We will order physical therapy for pool therapy and water aerobics. The patient will try this, also was encouraged for weight loss techniques and exercise as tolerated, but we will make arrangements for the water therapy through Physical Therapy Department and follow up once this is begun. WILLA HOLGUIN MD DR: DEVENDRA/jason JOB#: [id number] / [id number]
== END | disposition home or self-care (01) ==
LOC: PNCL 10:00
PROVIDERS: ATTEND Anesthesiology
DX: M51.16 Intervertebral disc disorders with radiculopathy, lumbar region (principal); M47.26 Other spondylosis with radiculopathy, lumbar region
CPT/HCPCS: G0463

== ENCOUNTER 2019-09-26 15:18 | Emergency (ER) | payer MEDICARE, BC ==
[~2019-09-26] VITALS: Ht 170.2 cm; Wt 129.5 kg
[2019-09-26 16:37] LABS: BASO # 0.1 x10^3/uL (0.0-0.2); BASO % 1 % (0-3); EOS # 0.2 x10^3/uL (0.0-0.7); EOS % 2 % (0-3); HEMATOCRIT 33.5 % (36.0-47.0); LYMPH # 2.1 x10^3/uL (1.0-4.8); LYMPH % 27 % (24-48); MEAN CORPUSCULAR HEMOGLOBIN 32 pg (25-35); MEAN CORPUSCULAR HGB CONC 33 g/dL (31-37); MEAN CORPUSCULAR VOLUME 98 fL (79-100); MONO # 0.7 x10^3/uL (0.0-1.1); MONO % 8 % (0-9); NEUT # 4.9 x10^3/uL (1.8-7.7); NEUT % 62 % (31-73); PLATELET COUNT 263 x10^3/uL (140-400); RED BLOOD COUNT 3.42 x10^6/uL (3.50-5.40); RED CELL DISTRIBUTION WIDTH 15.3 % (11.5-14.5); WHITE BLOOD COUNT 7.8 x10^3/uL (4.0-11.0)
[2019-09-26 16:45] LABS: PROTHROMBIN TIME PATIENT 12.5 SEC (11.7-14.0)
--- NOTE | 2019-09-26 17:00 | RAD ---
INDICATION: Swelling of the legs. COMPARISON: None. TECHNIQUE: Grayscale, color and doppler ultrasound images were obtained of the bilateral lower extremity venous vasculature. RIGHT: No thrombus identified in the common femoral vein, femoral vein, popliteal vein or visualized calf veins. LEFT: No thrombus identified in the common femoral vein, femoral vein, popliteal vein or visualized calf veins. IMPRESSION: * No thrombus identified in deep venous system of bilateral lower extremities. Electronically signed by: Adrien Brooks MD (09/26/2019 4:57 PM) [id number]
[2019-09-26 17:06] LABS: CALCIUM 9.2 mg/dL (8.5-10.1); CREATININE 0.8 mg/dL (0.6-1.0); GFR 70.9; POTASSIUM 3.4 mmol/L (3.5-5.1)
[2019-09-26 17:46] VITALS: BP 140/65
--- NOTE | 2019-09-26 17:46 | PHYS DOC ---
Past Medical History Past Medical History: Anxiety, Depression, High Cholesterol, Hypertension, Other Additional Past Medical Histor: GOUT Past Surgical History: Hysterectomy, Knee Replacement Additional Past Surgical Histo: hernia,rotator cuff,exp lap,L KNEE Smoking Status: Former Smoker Alcohol Use: None Drug Use: None Adult General Chief Complaint Chief Complaint: LOWER EXTREMITY EDEMA HPI HPI Patient is a 69 year old female presenting with leg swelling left greater than right x3-month started after a quadriceps repair has not had an ultrasound yet no chest pain no shortness of breath no fever no cough. Symptoms are moderate slowly worsening with time trying Lasix with no relief Review of Systems Review of Systems Constitutional: Denies fever or chills [] Eyes: Denies change in visual acuity, redness, or eye pain [] HENT: Denies nasal congestion or sore throat [] Respiratory: Denies cough or shortness of breath [] Cardiovascular: No additional information not addressed in HPI [] GI: Denies abdominal pain, nausea, vomiting, bloody stools or diarrhea [] Allergies Allergies Allergies Coded Allergies Type Severity Reaction Last Updated Verified No Known Drug Allergies 02/11/15 No Physical Exam Physical Exam Constitutional: Well developed, well nourished, no acute distress, non-toxic appearance. [] HENT: Normocephalic, atraumatic, bilateral external ears normal, oropharynx moist, no oral exudates, nose normal. [] Eyes: PERRLA, EOMI, conjunctiva normal, no discharge. [] Neck: Normal range of motion, no tenderness, supple, no stridor. [] Cardiovascular:Heart rate regular rhythm, no murmur [] Lungs & Thorax: Bilateral breath sounds clear to auscultation [] Abdomen: Bowel sounds normal, soft, no tenderness, no masses, no pulsatile masses. [] Skin: Warm, dry, no erythema, no rash. [] Back: No tenderness, no CVA tenderness. [] Extremities: Left greater than right edema 2+ Neurologic: Alert and oriented X 3, normal motor function, normal sensory function, no focal deficits noted. [] Psychologic: Affect normal, judgement normal, mood normal. [] Current Patient Data Vital Signs Vital Signs Date Time Temp Pulse Resp B/P (MAP) Pulse Ox O2 Delivery O2 Flow Rate FiO2 09/26/19 17:23 84 142/66 (91) Room Air 09/26/19 16:53 95 09/26/19 15:47 98.1 17 98.1 Lab Values Laboratory Tests Test 09/26/19 16:27 White Blood Count 7.8 x10^3/uL (4.0-11.0) Red Blood Count 3.42 x10^6/uL (3.50-5.40) L Hemoglobin 11.0 g/dL (12.0-15.5) L Hematocrit 33.5 % (36.0-47.0) L Mean Corpuscular Volume 98 fL (79-100) Mean Corpuscular Hemoglobin 32 pg (25-35) Mean Corpuscular Hemoglobin Concent 33 g/dL (31-37) Red Cell Distribution Width 15.3 % (11.5-14.5) H Platelet Count 263 x10^3/uL (140-400) Neutrophils (%) (Auto) 62 % (31-73) Lymphocytes (%) (Auto) 27 % (24-48) Monocytes (%) (Auto) 8 % (0-9) Eosinophils (%) (Auto) 2 % (0-3) Basophils (%) (Auto) 1 % (0-3) Neutrophils # (Auto) 4.9 x10^3/uL (1.8-7.7) Lymphocytes # (Auto) 2.1 x10^3/uL (1.0-4.8) Monocytes # (Auto) 0.7 x10^3/uL (0.0-1.1) Eosinophils # (Auto) 0.2 x10^3/uL (0.0-0.7) Basophils # (Auto) 0.1 x10^3/uL (0.0-0.2) Prothrombin Time 12.5 SEC (11.7-14.0) Prothrombin Time INR 1.0 (0.8-1.1) Sodium Level 143 mmol/L (136-145) Potassium Level 3.4 mmol/L (3.5-5.1) L Chloride Level 103 mmol/L (98-107) Carbon Dioxide Level 32 mmol/L (21-32) Anion Gap 8 (6-14) Blood Urea Nitrogen 16 mg/dL (7-20) Creatinine 0.8 mg/dL (0.6-1.0) Estimated GFR (Cockcroft-Gault) 70.9 Glucose Level 105 mg/dL (70-99) H Calcium Level 9.2 mg/dL (8.5-10.1) Laboratory Tests 09/26/19 16:27 Laboratory Tests 09/26/19 16:27 EKG EKG [] Radiology/Procedures Radiology/Procedures [] Impressions: IMPRESSION: * No thrombus identified in deep venous system of bilateral lower extremities. Electronically signed by: Kymberly Brooks MD (09/26/2019 4:57 PM) [id number] DICTATED and SIGNED BY: KYMBERLY BROOKS MD DATE: 09/26/19 887 Course & Med Decision Making Course & Med Decision Making Pertinent Labs and Imaging studies reviewed. (See chart for details) [] Pleasant 69-year-old female with 3 months of lower extremity swelling after quadriceps repair I suspect dependent edema possibly some postsurgical edema ultrasound negative for DVT creatinine normal patient is stable no chest pain or shortness of breath reassurance provided recommend follow-up with orthopedist she has follow-up on Sunday Narinder Disclaimer Narinder Disclaimer This electronic medical record was generated, in whole or in part, using a voice recognition dictation system. Departure Departure Impression: Primary Impression: Edema Disposition: HOME, SELF-CARE Condition: STABLE Patient Instructions: Edema, [id number] KRISTEL EUBANKS MD Sep 26, 2019 17:46
== END 2019-09-26 17:54 | disposition home or self-care (01) ==
LOC: ER 15:18
DX: R60.0 Localized edema (principal); I10 Essential (primary) hypertension; E78.00 Pure hypercholesterolemia, unspecified; M10.9 Gout, unspecified; Z96.652 Presence of left artificial knee joint; Z90.710 Acquired absence of both cervix and uterus; Z87.891 Personal history of nicotine dependence
CPT/HCPCS: 36415; 80048; 85025; 85610; 93970; 99285

== ENCOUNTER → 2019-12-15 | Outpatient (CLI) | payer MEDICARE, BC ==
--- NOTE | 2019-12-15 18:07 | RAD ---
DATE: 12/15/2019 12:47 PM EXAM: DIGITAL DIAGNOSTIC RT, BREAST ultrasound RIGHT HISTORY: Six-month follow-up probably benign finding in the lateral right breast . Patient reports that 2 of her sisters have been diagnosed with breast cancer in their 30s and 50s. COMPARISON: Mammograms of 05/03/2016, 05/04/2017, 05/06/2018 and 05/22/2019 as well as limited right breast ultrasound examinations of 05/24/2018, 11/20/2018, at 05/22/2019. CC and MLO views of the right breast were performed. Targeted ultrasound of the right breast and axilla was also performed.. This study was interpreted with the benefit of Computerized Aided Detection (CAD). FINDINGS: Breast Density: SCATTERED The breast parenchyma shows scattered fibroglandular densities. Breast parenchyma level B No persistent mammographic abnormality. However, additional imaging by ultrasound was also pursued to complete the imaging follow-up. Targeted ultrasound of the right breast showed benign-appearing subareolar duct ectasia at the retroareolar 9:00 position right breast. Further out at the 9:00 position 4 cm from the nipple however, irregular hypoechoic tissue with some shadowing was identified, mildly suspicious and recommended for biopsy. This measures approximately 7 mm on image 11 of series 1. Targeted ultrasound of the right axilla showed an oval, parallel orientation hypoechoic 8 mm nodule with no significant internal blood flow that could represent a fat lobule or other benign nodule but is equivocal for a lymph node with effacement of the normal fatty hilum. It is mildly suspicious and also recommended for biopsy. IMPRESSION: Right breast asymmetry, findings for which biopsy advised. BI-RADS CATEGORY: 4 SUSPICIOUS ABNORMALITY- BIOPSY SHOULD BE CONSIDERED RECOMMENDED FOLLOW-UP: BIO BIOPSY RECOMMENDED Discussed with patient. The breast Center staff will assist with scheduling follow-up for this patient. PQRS compliance statement: Patient information was entered into a reminder system with a target due date for the next mammogram. Mammography is a sensitive method for finding small breast cancers, but it does not detect them all and is not a substitute for careful clinical examination. A negative mammogram does not negate a clinically suspicious finding and should not result in delay in biopsying a clinically suspicious abnormality. "Our facility is accredited by the [employer] Mammography Program."
== END | disposition home or self-care (01) ==
LOC: MAMMO 13:52
PROVIDERS: ATTEND Family Medicine
DX: N64.59 Other signs and symptoms in breast (principal)
CPT/HCPCS: 76641; 77065

== ENCOUNTER → 2020-04-19 | Outpatient (CLI) | payer MEDICARE, BC ==
[~2020-04-19] MED LIST changes: +GADOTERATE 7.5 MMOL/15ML VIAL. IVP ONE
--- NOTE | 2020-04-19 16:09 | KCIC ---
LUMBAR SPINE WO/W CONTRAST Date: 04/19/2020 2:00 PM Indication: LUMBAR STENOSIS. Prior laminectomy 2008 per pt. Chronic LBP with pain into both buttocks. Comparison: CT 05/07/2019. Technique: Multi-planar multi-weighted magnetic resonance imaging of the lumbar spine was performed with and without intravenous contrast using the standard lumbar spine protocol. 24 cc Clariscan contrast was administered intravenously during the examination. FINDINGS: 7 mm anterolisthesis at L3-4. No acute fracture. Moderate multilevel degenerative disc desiccation and disc height loss. No marrow replacing process to suggest malignancy. The conus terminates at a normal level. No abnormal signal is seen within the visualized distal spinal cord. No clumping of intrathecal nerve roots. No abnormal enhancement. No soft tissue abnormality in the visualized abdomen or pelvis. T11-12: Disc bulge. Moderate facet arthropathy. Mild spinal canal stenosis. No significant neural foraminal narrowing T12-L1: Disc bulge. Mild facet arthropathy. No significant spinal stenosis or neural foraminal narrowing. L1-L2: Disc bulge. Mild facet arthropathy. No significant spinal stenosis or neural foraminal narrowing. L2-L3: Disc bulge. Mild facet arthropathy. No significant spinal stenosis or neural foraminal narrowing. L3-L4: Left hemilaminectomy. Disc bulge with uncovering of the disc. Moderate facet arthropathy with edema in the right facet joint. Mild spinal stenosis. Mild right and moderate left lateral recess narrowing. Moderate to severe bilateral neural foraminal narrowing. L4-L5: Left hemilaminectomy per Disc bulge. Mild facet arthropathy. No significant spinal stenosis. Mild lateral recess narrowing. Moderate to severe bilateral neural foraminal narrowing. L5-S1: Disc bulge. Mild facet arthropathy. No significant spinal stenosis or neural foraminal narrowing. IMPRESSION: Moderate to severe lumbar spondylosis, detailed level by level above. No high-grade spinal canal stenosis. Electronically signed by: Govind Goodrich MD (04/19/2020 4:06 PM) [id number]
== END ==
LOC: KCIC MRI 13:36
PROVIDERS: ATTEND Neurological Surgery
DX: M47.815 Spondylosis without myelopathy or radiculopathy, thoracolumbar region (principal); M47.817 Spondylosis without myelopathy or radiculopathy, lumbosacral region; M48.061 Spinal stenosis, lumbar region without neurogenic claudication; M48.04 Spinal stenosis, thoracic region; M43.16 Spondylolisthesis, lumbar region; G89.29 Other chronic pain
CPT/HCPCS: 72158; 82565; A9575

== ENCOUNTER → 2020-05-27 | Outpatient (CLI) | payer MEDICARE, BC ==
[~2020-05-27] MED LIST changes: -GADOTERATE 7.5 MMOL/15ML VIAL. IVP ONE
--- NOTE | 2020-05-27 17:34 | KCIC ---
L-spine 3 views INDICATION: Spondylolisthesis. FINDINGS: 5 lumbar type vertebrae are identified within the inferior most lumbar type vertebrae referred to as L5. Supine, upright flexion and upright extension views of the lumbar spine were obtained. In the supine position, grade 1 anterolisthesis of L3 on L4 measuring 9 mm is present. In the upright flexion position, this anterolisthesis measures 16 mm. In the upright extension lateral view, this anterolisthesis measures 12 mm. Disc space narrowing at L3-L4 and at L4-L5 is present. No acute fracture or aggressive osseous lesions. Multilevel facet degenerative change. Arterial calcifications in the soft tissues. IMPRESSION: Grade 1 anterolisthesis with evidence of abnormal motion at L3-L4 on flexion and extension. Electronically signed by: Xu Marie MD (05/27/2020 5:32 PM) [id number]
== END ==
LOC: KCIC 13:12
PROVIDERS: ATTEND Neurological Surgery
DX: M43.16 Spondylolisthesis, lumbar region (principal); M48.061 Spinal stenosis, lumbar region without neurogenic claudication
CPT/HCPCS: 72100

== ENCOUNTER → 2020-06-07 | Outpatient (CLI) | payer MEDICARE, BC ==
[~2020-06-07] MED LIST changes: +HYDR-2761 PO; +IBUP-1007 PO; +LORA10TA3 PO; +METH750T2 PO; +OXYC1TAB15 PO
--- NOTE | 2020-06-07 13:58 | EKG ---
[facility] [address] [place] [address] Test Date: 2020-06-07 Test Time: 13:43:10 Pat Name: LOW MORIN Department: Room: Gender: F Front Office Clerk: : 1950 Requested By: MARITZA VALLE Order Number: [id number] Reading MD: Shelton Ferrara Measurements Intervals Means Rate: 83 P: 0 GA: 204 QRS: -10 QRSD: 76 T: 47 QT: 380 QTc: 447 Interpretive Statements SINUS RHYTHM LEFTWARD AXIS Electronically Signed On 06-08-2020 9:56:51 REHABILITATION CLERK by Shelton Ferrara
[2020-06-07 16:12] LABS: BASO # 0.1 x10^3/uL (0.0-0.2); BASO % 1 % (0-3); EOS # 0.2 x10^3/uL (0.0-0.7); EOS % 2 % (0-3); HEMATOCRIT 35.9 % (36.0-47.0); LYMPH # 2.4 x10^3/uL (1.0-4.8); LYMPH % 25 % (24-48); MEAN CORPUSCULAR HEMOGLOBIN 32 pg (25-35); MEAN CORPUSCULAR HGB CONC 33 g/dL (31-37); MEAN CORPUSCULAR VOLUME 97 fL (79-100); MONO # 0.6 x10^3/uL (0.0-1.1); MONO % 6 % (0-9); NEUT # 6.5 x10^3/uL (1.8-7.7); NEUT % 66 % (31-73); PLATELET COUNT 248 x10^3/uL (140-400); RED BLOOD COUNT 3.71 x10^6/uL (3.50-5.40); RED CELL DISTRIBUTION WIDTH 14.6 % (11.5-14.5); WHITE BLOOD COUNT 9.9 x10^3/uL (4.0-11.0)
[2020-06-07 16:30] LABS: PROTHROMBIN TIME PATIENT 13.2 SEC (11.7-14.0)
[2020-06-07 17:19] LABS: ALBUMIN 3.1 g/dL (3.4-5.0); CALCIUM 8.8 mg/dL (8.5-10.1); CREATININE 0.8 mg/dL (0.6-1.0); GFR 70.9; POTASSIUM 3.3 mmol/L (3.5-5.1); TOTAL BILIRUBIN 0.4 mg/dL (0.2-1.0); TOTAL PROTEIN 6.2 g/dL (6.4-8.2)
[2020-06-09 03:11] LABS: HEMOGLOBIN A1C 5.9 % (4.8-5.6)
== END ==
LOC: SURGPAT 13:36
PROVIDERS: ATTEND Neurological Surgery
DX: Z01.818 Encounter for other preprocedural examination (principal); M43.16 Spondylolisthesis, lumbar region; M48.061 Spinal stenosis, lumbar region without neurogenic claudication; M43.26 Fusion of spine, lumbar region
CPT/HCPCS: 36415; 80053; 82306; 83036; 85025; 85610; 85730; 87641; 93005

== ENCOUNTER → 2020-06-11 | Outpatient (CLI) | payer MEDICARE, BC ==
[~2020-06-11] MED LIST changes: -METH750T2 PO; -OXYC1TAB15 PO
== END ==
LOC: LAB 14:17
PROVIDERS: ATTEND Neurological Surgery
DX: Z01.812 Encounter for preprocedural laboratory examination (principal); Z20.828 Contact with and (suspected) exposure to other viral communicable diseases
CPT/HCPCS: U0003

== ENCOUNTER → 2020-06-25 | Outpatient (CLI) | payer MEDICARE, BC ==
[2020-06-17 11:30] VITALS: BP 115/57
[~2020-06-25] MED LIST changes: +METH750T2 PO; +OXYC1TAB15 PO
--- NOTE | 2020-06-25 13:54 | KCIC ---
EXAM: XR LUMBAR SPINE 2-3V 06/25/2020 11:35 AM CLINICAL INDICATION: Back and bilateral leg pain, post fusion COMPARISON: Lumbar spine radiograph 05/27/2020 TECHNIQUE: 2 views of lumbar spine FINDINGS: There are new surgical changes of posterior fusion at L3-L4 with bilateral pedicle screws and connecting rods. Hardware is intact without evidence of loosening. No acute fracture. There is un changed 1.4 cm anterolisthesis of L3 on L4. Moderate disc space narrowing at all L3-L4 and L4-L5, and milder disc space at the remaining levels is unchanged. IMPRESSION: Interval posterior fusion L3-L4 without evidence of complication. Electronically signed by: Isela Chaparro MD (06/25/2020 1:51 PM) [id number]
== END ==
LOC: KCIC 11:32
PROVIDERS: ATTEND Neurological Surgery
DX: M43.16 Spondylolisthesis, lumbar region (principal); M48.061 Spinal stenosis, lumbar region without neurogenic claudication; Z98.1 Arthrodesis status
CPT/HCPCS: 72100

== ENCOUNTER → 2020-09-08 | Outpatient (CLI) | payer MEDICARE, BC ==
[2020-06-17 11:30] VITALS: BP 115/57
[~2020-09-08] MED LIST changes: +METH-562 PO; -METH750T2 PO
--- NOTE | 2020-09-08 17:00 | KCIC ---
L-spine 2 views INDICATION: Status post lumbar spinal fusion. COMPARISON: L-spine x-rays of 06/25/[address] lumbar spine of 06/16/2020 FINDINGS: Standing AP and lateral views of the lumbar spine were obtained. These again show grade 1 anterolisth esis of L3 on L4 of approximately 1.3 cm and very subtle leftward levoscoliosis. The eliot and pedicle screw construct posterior fusion hardware at L3-L4 remains in place in similar al ignment to prior. They appear intact. No acute fracture or aggressive bony lesions are seen. Facet hypertrophy is present at multiple levels. This likely results in at least moderate foraminal s tenosis at L4-L5 and to lesser extent at L5-S1. Combination of loss of height and anterolisthesis lik carolee results in central canal and bilateral foraminal stenosis at L3-L4, unchanged in the interval. Visualized sacroiliac joints are unremarkable. Soft tissues show aortic calcification. IMPRESSION: Stable anterolisthesis at L3-L4 following posterior lumbar spinal eliot and pedicle screw construct fus ion. No acute superimposed osseous abnormality. Electronically signed by: Xu Marie MD (09/08/2020 4:58 PM) [id number]
== END ==
LOC: KCIC 14:13
PROVIDERS: ATTEND Neurological Surgery
DX: M43.26 Fusion of spine, lumbar region (principal); I70.0 Atherosclerosis of aorta
CPT/HCPCS: 72100

== ENCOUNTER 2020-10-07 18:48 | Emergency (ER) | payer MEDICARE, BC ==
[~2020-10-07] VITALS: Ht 170.2 cm; Wt 122.7 kg
[2020-10-07] MEDS ORDERED: AMOX1TAB61 PO (19:35)
[2020-10-07 19:37] VITALS: BP 133/65
--- NOTE | 2020-10-07 19:38 | ED.ADGEN ---
Past Medical History Past Medical History: Anxiety, Depression, High Cholesterol, Hypertension, Other Additional Past Medical Histor: GOUT Past Surgical History: Hysterectomy, Knee Replacement Additional Past Surgical Histo: hernia,rotator cuff,exp lap,L KNEE Smoking Status: Current Some Day Smoker Alcohol Use: None Drug Use: None General Adult EDM: Chief Complaint: FACE PROBLEM HPI: HPI: Patient is a 70-year-old female who presents to the emergency room complaining of left-sided cheek swelling that started spontaneously while she was at the grocery store earlier today. She states over an hour she noticed that the area was swelling. She has never had swelling like this before. She denies any teeth pain or issues. She denies any difficulty with swallowing or talking. She states that the area is tender on palpation. Review of Systems: Review of Systems: Complete ROS is negative unless otherwise documented in HPI Allergies: Allergies: Allergies Coded Allergies Type Severity Reaction Last Updated Verified adhesive tape Adverse Reaction Intermediate 06/16/20 Yes Physical Exam: PE: General: Awake, alert, NAD. Well Nourished, well hydrated. Cooperative HEENT: Atraumatic, EOMI, PERRL, airway patent, moist oral mucosa, left posterior cheek swelling with tenderness, inner buccal surface with swelling and increased swelling around the parotid gland Neck: Supple, trachea midline Respiratory: CTA bilaterally, normal effort, no wheezing/crackles CV: RRR, no murmur, cap refill <2 GI: Soft, nondistended, nontender, no masses MSK: No obvious deformities Skin: Warm, dry, intact Neuro: A&O x3, speech NL, sensory and motor grossly intact, no focal deficits Psych: Normal affect, normal mood, not suicidal or homicidal Current Patient Data: Vital Signs: Vital Signs Date Time Temp Pulse Resp B/P (MAP) Pulse Ox O2 Delivery O2 Flow Rate FiO2 10/07/20 19:00 97.6 82 20 158/72 (100) 94 Room Air 97.6 EKG: EKG: [] Heart Score: C/O Chest Pain: N/A Risk Factors: Risk Factors: DM, Current or recent (<one month) smoker, HTN, HLP, family history of CAD, obesity. Risk Scores: Score 0 - 3: 2.5% MACE over next 6 weeks - Discharge Home Score 4 - 6: 20.3% MACE over next 6 weeks - Admit for Clinical Observation Score 7 - 10: 72.7% MACE over next 6 weeks - Early Invasive Strategies Radiology/Procedures: Radiology/Procedures: [] Course & Med Decision Making: Course & Med Decision Making Pertinent Labs and Imaging studies reviewed. (See chart for details) Patient is 70-year-old female who presents to the emergency room complaining of spontaneous swelling to her cheek. Upon evaluation patient appears to have swelling within her parotid gland. She has no signs of dental abscess or abscess within the mouth. She has good dentition. She has no teeth pain. We will place her on antibiotics in case there is a chance that it may be infected. I discussed with her doing sour candy or lemon juice to help the stone pass. We will give her ENT information for follow-up. Patient's test results and vitals while in the ED were fully reviewed and discussed with the patient. Patient is stable and at this time does not need admission to the hospital. We have discussed strict return precautions and the importance of following up with their Primary Care Physician. Patient stated understanding and was given an opportunity to ask any questions. Patient is in agreement with plan. Dragon Disclaimer: Dragon Disclaimer: This electronic medical record was generated, in whole or in part, using a voice recognition dictation system. Departure Departure Impression: Primary Impression: Acute parotitis Disposition: 01 DC HOME SELF CARE/HOMELESS Condition: STABLE Referrals: LETTY HASSAN MD (PCP) RACHEL LAWSON MD Patient Instructions: Parotitis, Sialadenitis, Extended Version Scripts Amoxicillin/Potassium Clav (AUGMENTIN 875-125 TABLET) 1 Each Tablet 1 TAB PO Q12HR, #10 TAB Prov: ROBBIE BAINS MD 10/07/20 ROBBIE BAINS MD Oct 07, 2020 19:38
== END 2020-10-07 19:58 | disposition home or self-care (01) ==
LOC: ER 18:48
DX: K11.21 Acute sialoadenitis (principal); E78.00 Pure hypercholesterolemia, unspecified; I10 Essential (primary) hypertension; M10.9 Gout, unspecified; F17.200 Nicotine dependence, unspecified, uncomplicated; Z88.8 Allergy status to other drugs, medicaments and biological substances
CPT/HCPCS: 99283

== ENCOUNTER → 2020-10-26 | Outpatient (CLI) | payer MEDICARE, BC ==
[2020-10-07 19:37] VITALS: BP 133/65
[~2020-10-26] MED LIST changes: +AMOX1TAB61 PO
--- NOTE | 2020-10-26 11:23 | KCIC ---
EXAM: Low dose lung cancer screening CT. HISTORY: Lung cancer screening. TECHNIQUE: Computed tomographic images of the chest were obtained without contrast. Multiplanar refor matting was performed. *One or more of the following individualized dose reduction techniques were utilized for this examina tion: 1. Automated exposure control. 2. Adjustment of the mA and/or kV according to patient size. 3. Use of iterative reconstruction technique. COMPARISON: None. FINDINGS: The exam is limited due to patient body habitus. The heart is normal in size. There is calc ified atherosclerotic plaque involving the aorta and coronary arteries. There is no mediastinal or hi lar lymphadenopathy. There is no pneumothorax or pleural effusion. There are few nonspecific groundgl ass opacities scattered throughout both lungs in a predominantly bilateral posterior lower lobe distr ibution, the majority of which is likely due to atelectasis.. There are few nonspecific groundglass o pacities within the bilateral upper lobes which may be postinfectious or postinflammatory in etiology . There is no consolidated infiltrate. There is a 3 mm pleural-based nodular opacity within the poste rior superior segment of the right lower lobe. There is hepatic steatosis and hepatomegaly, partially included on the [id number]. There is no suspicious osseous lesion. IMPRESSION: 1. 3 mm pleural-based nodular opacity within the posterior superior segment of the right lower lobe, the appearance of which favors benignity. Lung RADS category 2:[address] is r ecommended. 2. Nonspecific groundglass opacities scattered throughout both lungs in a predominantly posterior low er lobe distribution, the majority of which are likely due to atelectasis. There are few nonspecific groundglass opacities within the upper lobes which may be postinfectious or postinflammatory. There i s no consolidated pneumonia. 3. Hepatomegaly and hepatic steatosis. Electronically signed by: Rhonda Osborne MD (10/26/2020 11:21 AM) [id number]
--- NOTE | 2020-10-28 08:26 | KCIC ---
EXAM: DUAL ENERGY X-RAY ABSORPTIOMETRY (DEXA). HISTORY: Postmenopausal screening. FINDINGS: The lowest measured T-score is -0.6 in the left forearm, based on a bone mineral density of 0.533 g/cm^2. Refer to the worksheets for full detail. No comparison examinations are available. IMPRESSION: 1. Normal. Bone mineral density yields a T-score of -1.0 or greater. Fracture risk is low. 2. FRAX report: Not calculated. METHODOLOGY: Dual energy x-ray absorptiometry was performed to measure bone mineral density. The foll owing analysis is based on the 2019 Official Positions of the International Society for Clinical Dens itometry: Measurements of the hips and the average of L1-L4 are preferred. When the spine and/or hip cannot be feasibly measured or interpreted, or in the setting of hyperparathyroidism, distal radial bone minera l density may be measured. The lumbar spine T-score is based on the average bone mineral density of L1-L4. In the setting of art ifact or anatomic abnormality, some lumbar levels may be excluded, and the remaining levels used for calculation. A single lumbar level is not used for diagnosis, and if only a single level is available for assessment, another anatomic site will be used to assign a diagnosis. The hip T-score is based on the bone mineral density measurement of the femoral neck or total proxima l femur of either side, whichever is lowest. Bilateral mean values are not used for diagnosis. The forearm T-score is derived from 33% of the distal radius of the nondominant forearm. Electronically signed by: Rhonda Osborne MD (10/28/2020 8:24 AM) [id number]
== END ==
LOC: KCIC DEXA 10:01
PROVIDERS: ATTEND Nurse Practitioner
DX: N95.9 Unspecified menopausal and perimenopausal disorder (principal); R16.0 Hepatomegaly, not elsewhere classified; K76.0 Fatty (change of) liver, not elsewhere classified; R91.1 Solitary pulmonary nodule; F17.210 Nicotine dependence, cigarettes, uncomplicated
CPT/HCPCS: 71271; 77080; 77081

== ENCOUNTER → 2020-11-23 | Outpatient (CLI) | payer MEDICARE, BC ==
[~2020-11-23] MED LIST changes: +GADOTERATE 5 MMOL/10ML VIAL. INT ART ONE; +IOHEXOL 300 MG/ML 50 ML VIAL. INT ART ONE; +LIDOCAINE 1% Multi-Dose 20 ML VIAL. ID ONE
--- NOTE | 2020-11-23 15:37 | KCIC ---
Study: Fluoroscopically guided arthrogram of the right shoulder joint for MRI Indication: Right shoulder pain. Decreased range of motion. Previous rotator cuff repair. Contrast: 4 cc Omnipaque 300 Technique: A timeout was performed prior to beginning the procedure in order to confirm patient identity and lat erality of the injection. The risks, benefits and alternatives of the procedure were discussed. Utilizing sterile technique, fluoroscopic guidance and local anesthesia with 1% lidocaine, the right shoulder joint was accessed utilizing a 22-gauge, 3.5" spinal needle. Confirmation of needle position was obtained with a small amount of radiopaque contrast. Subsequently, approximately 12 cc of a mixt ure containing 5 cc Omnipaque 300, 5 cc 1 percent lidocaine, 10 cc saline and 0.1 cc Clariscan was in jected. There were no immediate post procedure complications. Fluoroscopy time: 34 seconds Number of images obtained: 1 Impression: Technically successful fluoroscopic guided arthrogram of the right shoulder joint without immediate p ostprocedure complication. Electronically signed by: MADALYN VOGT MD (11/23/2020 3:34 PM) [id number]
--- NOTE | 2020-11-23 16:19 | KCIC ---
STUDY: MRI arthrogram of the right shoulder INDICATION: Right shoulder pain and decreased range of motion. Previous rotator cuff repair. COMPARISON: Right shoulder MRI 05/28/2018 TECHNIQUE: Multiplanar MR imaging of the right shoulder performed after the intra-articular injection of contrast material. The injection portion of the procedure is detailed in a separate report. FINDINGS: AC joint: Hypertrophic AC joint arthrosis with a deficient inferior capsule allowing for extension of bursal fluid into the joint space and elevating the joint capsule. Gadolinium-containing fluid diste nds the subacromial subdeltoid bursa with an 8.5 mm loose body within the anterior portion of the sub deltoid aspect, image 9 series 8. Rotator cuff: Sequela of previous rotator cuff repair mainly involving the supraspinatus to anterior infraspinatus. Despite the presence of gadolinium within the bursa no large/well delineated full-thic kness rotator cuff tear is identified. This is favored in part related to porosity of the repaired te ndon. No retracted tendon fibers are seen or progressive rotator cuff atrophy/fatty infiltration. The repaired tendon exhibits a similar degree of thinning and heterogeneity. Similar degree of subscapul lizabeth tendinosis and partial-thickness articular sided tearing/fraying. Labrum: Similar morphology with multifocal labral degeneration/degenerative tearing. Long head biceps tendon: The long head biceps is no longer visualized with fluid in the empty bicipit al groove. Cartilage: Multifocal chondrosis favored to involve the humeral head more so than the glenoid. Bones: No acute fracture or focally aggressive marrow signal abnormality. Miscellaneous: Small shoulder joint loose bodies. No axillary adenopathy. Impression: 1. Gadolinium-containing fluid distends the subacromial subdeltoid bursa but no discrete full-thickne ss rotator cuff tear is identified. This is favored predominately due to porosity of the repaired rot ator cuff. Similar morphology of the repaired tendon which is thinned and heterogeneous. No progressi ve rotator cuff muscular atrophy/fatty infiltration. 2. The long head biceps tendon is no longer visualized. Presumably this is from interval full-thickne ss tearing as no manifestations of tenodesis are apparent but correlate with interval surgical histor y. 3. Redemonstration of multifocal labral degeneration/degenerative tearing. Glenohumeral chondral loss and small shoulder joint loose bodies. 4. Subacromial subdeltoid bursitis with an 8.5 mm loose body at the anterior subdeltoid portion. Burs al fluid extends through a deficient inferior AC joint capsule and elevates the superior capsule. Electronically signed by: MADALYN VOGT MD (11/23/2020 4:17 PM) [id number]
== END | disposition home or self-care (01) ==
LOC: KCIC 12:44
PROVIDERS: ATTEND Orthopaedic Surgery
DX: M25.511 Pain in right shoulder (principal); M75.101 Unspecified rotator cuff tear or rupture of right shoulder, not specified as traumatic; I10 Essential (primary) hypertension; E78.00 Pure hypercholesterolemia, unspecified; M19.90 Unspecified osteoarthritis, unspecified site; M10.9 Gout, unspecified; F32.9 Major depressive disorder, single episode, unspecified; F17.210 Nicotine dependence, cigarettes, uncomplicated; Z90.710 Acquired absence of both cervix and uterus; Z98.890 Other specified postprocedural states; Z79.899 Other long term (current) drug therapy; Z79.82 Long term (current) use of aspirin; Z88.8 Allergy status to other drugs, medicaments and biological substances
CPT/HCPCS: 23350; 73222; 77002; A9575; J3490; Q9967

== ENCOUNTER → 2021-07-05 | Outpatient (CLI) | payer MEDICARE, BC ==
[~2021-07-05] MED LIST changes: -BENA40TA3 PO; +BENA40TA74 PO; -FLUO20CA20 PO; +FLUO20CA22 PO; -GADOTERATE 5 MMOL/10ML VIAL. INT ART ONE; -IOHEXOL 300 MG/ML 50 ML VIAL. INT ART ONE; -LIDOCAINE 1% Multi-Dose 20 ML VIAL. ID ONE
--- NOTE | 2021-07-05 15:52 | KCIC ---
EXAM: Cervical spine, 5 views; bilateral knees, 2 views; bilateral shoulders, 3 views; sacroiliac rossana nts, 3 views; lumbar spine, 5 views. HISTORY: Pain. COMPARISON: None. FINDINGS: Cervical spine: 5 views of the cervical spine are obtained. There is cervical kyphosis centered at C5 . There is minimal multilevel degenerative listhesis. There is degenerative endplate remodeling with disc space narrowing and osteophytosis primarily at C5-C6, and to a lesser extent, C6-C7. There is mu ltilevel facet arthropathy. There is foraminal stenosis primarily at C5-C6. Bilateral knees: 2 views of both knees are obtained. There is a left knee arthroplasty in expected po sition. There is no evidence of arthroplasty loosening. There is medial compartment joint space narro wing and medial compartment predominant spurring of the right knee. There is mild right knee genu sabina us. There is a small right knee effusion. There is a right knee joint loose body. Lumbar spine: 5 views of the lumbar spine are obtained. There is instrumented posterior spinal fusion at L3-L4. There is grade 1 anterolisthesis measuring 1.1 cm at this level. There is no convincing in strumentation loosening. There is 2 mm grade 1 anterolisthesis of L4 on L5. There is mild lumbar scol iosis. There is degenerative endplate remodeling with disc space narrowing and osteophytosis primaril y at L4-L5. There is suspected bone demineralization. There is slight sacralization of the left L5 tr ansverse process, a normal variant. Sacroiliac joints: 3 views of the sacroiliac joints are obtained. There is no fracture, dislocation o r subluxation. There is no joint space widening or osseous erosion. Bilateral shoulders: 3 views of both shoulders are obtained. There is no acute fracture, dislocation or subluxation. There is mild left glenohumeral joint spurring and right acromial clavicular joint sp urring, the latter of which is associated with a small and inferiorly directed distal clinical or spu r. There is decreased right subacromial space, likely projectional or due to rotator cuff pathology. There is degenerative subchondral cyst formation and sclerosis at the right rotator cuff insertion on the greater tuberosity. IMPRESSION: 1. Degenerative change involving the cervical spine, primarily at C5-C6. 2. Degenerative change involving the lumbar spine, primarily at L4-L5. 3. Instrumented posterior spinal fusion and grade 1 anterolisthesis at L3-L4. 4. Mild left glenohumeral joint and right acromioclavicular joint osteoarthritis. There is also suspe cted chronic right rotator cuff pathology. 6. Left knee arthroplasty in expected position. 7. Moderate medial compartment predominant osteoarthritis of the right knee with small joint effusion and joint loose body. Electronically signed by: Rhonda Osborne MD (07/05/2021 3:50 PM) [id number]
== END ==
LOC: KCIC 13:22
PROVIDERS: ATTEND Anesthesiology Pain Medicine
DX: M47.816 Spondylosis without myelopathy or radiculopathy, lumbar region (principal); M47.812 Spondylosis without myelopathy or radiculopathy, cervical region; M43.16 Spondylolisthesis, lumbar region; M19.011 Primary osteoarthritis, right shoulder; M19.012 Primary osteoarthritis, left shoulder; M17.11 Unilateral primary osteoarthritis, right knee; M40.292 Other kyphosis, cervical region; M48.02 Spinal stenosis, cervical region; M25.78 Osteophyte, vertebrae; M48.8X2 Other specified spondylopathies, cervical region; M25.461 Effusion, right knee; M21.161 Varus deformity, not elsewhere classified, right knee; M25.861 Other specified joint disorders, right knee; M48.061 Spinal stenosis, lumbar region without neurogenic claudication; Z96.652 Presence of left artificial knee joint; Z98.1 Arthrodesis status
CPT/HCPCS: 72050; 72110; 72202; 73560-50